=== PATIENT | female | born 1955 | race Caucasian/White ===

== ENCOUNTER → 2016-11-21 | Outpatient (CLI) | payer BC ==
[~2016-11-21] MED LIST: ASPCH81X PO; CPR500 PO; FLUT0.15 NAE; METR-163 PO; SIMV20TA2 PO; SNG10 PO
--- NOTE | 2016-11-21 09:47 | DIAGNOSTIC IMAGING REPORT ---
LEFT INGUINAL ULTRASOUND HISTORY: Left inguinal pain. FINDINGS: Real-time sonographic imaging of the left inguinal region was performed. There is no mass, fluid collections, or hernia identified. IMPRESSION: No left inguinal hernia identified. Electronically signed by: Rich Jacobo M.D. 11/21/2016 9:45 AM Dictated Date/Time: 11/21/2016 9:43 AM
== END | disposition home or self-care (01) ==
LOC: C.ULTR 09:14
PROVIDERS: ATTEND Family Medicine
DX: R10.9 Unspecified abdominal pain (principal)

== ENCOUNTER → 2016-11-27 | Outpatient (CLI) | payer BC ==
[~2016-11-27] MED LIST changes: +OPTIRAY 320 IV PRN
--- NOTE | 2016-11-27 14:57 | DIAGNOSTIC IMAGING REPORT ---
CT SCAN OF THE ABDOMEN AND PELVIS WITH IV CONTRAST CLINICAL HISTORY: Left lower quadrant abdominal pain. Change in bowel habits. COMPARISON STUDY: Abdominal CT dated 12/29 03/22 and 05/10/2011. TECHNIQUE: Following the IV administration of 94 cc of Optiray 320, CT scan of the abdomen and pelvis is performed from the lung bases to the proximal femora. Images are reviewed in the axial, sagittal, and coronal planes. IV contrast was administered without complication. Automated dose control exposure was utilized. CT DOSE: 275.91 mGy.cm FINDINGS: Lung bases: The heart is normal in size and without pericardial effusion. A 4 mm pleural-based nodule is seen in the left lower lobe on image #19. The lung bases are otherwise clear noting dependent atelectasis. There is an 11 mm nodule in the left breast seen on image #21. Liver: The contrast-enhanced liver is normal in size, contour, and attenuation. There is no intrahepatic biliary ductal dilatation. The hepatic veins and portal veins are patent. Gallbladder: Unremarkable. Spleen: Normal in size and attenuation. Pancreas: Unremarkable. Adrenal glands: Unremarkable. Kidneys: The contrast enhanced kidneys are normal in size and without hydronephrosis. The kidneys enhance symmetrically. Abdominal vasculature: The abdominal aorta is normal in course and caliber. Bowel: The small bowel and colon are normal in course and caliber. Visualized portions of the appendix appear normal. Peritoneum: There is no intraperitoneal free air or abdominal ascites. Lymphadenopathy: None. Pelvic viscera: The bladder is normal as visualized. An exophytic fibroid is again seen arising from the uterine fundus. No adnexal lesion is identified. Skeletal structures: The skeletal structures are osteopenic. There is mild lumbosacral spondylosis and scoliosis. Sclerotic change is seen at the sacroiliac joints. No lytic or blastic lesions are seen. IMPRESSION: 1. There are no acute infectious or inflammatory findings in the abdomen or pelvis. 2. Fibroid uterus. 3. There is an 11 mm nodule identified in the left breast. If not recently performed, follow-up with mammography is recommended for further assessment. 4. There is a low suspicion but indeterminant 4 mm pleural-based nodule at the left lung base. This can be followed if clinically warranted. See below. 5. Additional changes as above. Please refer to below summary of Fleischner criteria recommendations for follow-up of incidental CT nodules (Jayleen Lakhani, Guidelines for management of small pulmonary nodules detected on CT scans: A statement from the Fleischner Society, Radiology 237: [phone].) Low Risk Patient: Minimal or no smoking or other known risk factors for malignancy <=4 mm: No follow-up needed. >4-6 mm: Initial follow-up CT at 12 months; if unchanged, no further follow-up. >6-8 mm: Initial follow-up CT at 6-12 months then at 18-24 months if no change. >8 mm: Follow-up CT at \R\3, 9, 24 months, or PET and/or biopsy. High Risk Patient: History of smoking or other known risk factors <=4 mm: Follow-up at 12 months; if unchanged, no further follow-up. >4-6 mm: Initial follow-up CT at 6-12 months then at 18-24 months if no change. >6-8 mm: Initial follow-up CT at 3-6 months then at 9-12 and 24 months if no change. >8 mm: Same as low risk patient. Note: Nodule size measured as average of length and width. Ground glass or partly solid nodules may require longer follow-up to exclude indolent adenocarcinoma. Electronically signed by: Jd Candelario M.D. 11/27/2016 2:56 PM Dictated Date/Time: 11/27/2016 2:49 PM
== END | disposition home or self-care (01) ==
LOC: C.CTS 14:12
PROVIDERS: ATTEND Registered Nurse
DX: R19.4 Change in bowel habit (principal); N63 Unspecified lump in breast; R91.1 Solitary pulmonary nodule; D25.9 Leiomyoma of uterus, unspecified

== ENCOUNTER → 2016-12-09 | Day surgery (SDC) | payer BC ==
[2016-12-01 09:45] VITALS: BMI 22.0
[~2016-12-09] VITALS: Ht 160 cm; Wt 58.2 kg
[~2016-12-09] MED LIST changes: -CPR500 PO; +LIDOCAINE HCL 2% 2 ML VIAL (20MG/ML) ONE; -METR-163 PO; -OPTIRAY 320 IV PRN; +PROPOFOL IV EMULSION 10 MG/ML 20 ML VIAL IV ONE; +SODIUM CHLORIDE 0.9% 500ML 500 ML IV ONE
[2016-12-09 08:21] VITALS: Ht 160 cm; Wt 58.2 kg
--- NOTE | 2016-12-09 08:55 | Endo History and Physical ---
History & Physical Date of Service: Dec 09, 2016. Chief Complaint: LLQ pain, change in bowel habits Referring Physician: Dr. Freddy Eldridge History of Present Illness 61 yo CF who presents for colonoscopy secondary to LLQ abdominal pain. Past Surgical History Hx Cardiac Surgery: No Hx Internal Defibrillator: No Hx Pacemaker: No Hx Abdominal Surgery: Yes () Hx of Implantable Prosthesis: No Hx Post-Op Nausea and Vomiting: No Hx Cancer Surgery: No Hx Thoracic Surgery: No Hx Orthopedic: No Hx Urinary Tract Surgery: No Family History None Social History Smoking Status: Never Smoker Hx Substance Use: No Hx Alcohol Use: Yes (2 GLASSES OF WINE>5X WEEKLY) Allergies Coded Allergies: Codeine (Verified Adverse Reaction, Mild, NAUSEA, 12/09/16) Current Medications Reported Home Medications Medications Dose Route/Sig Max Daily Dose Days Date Category Flonase Allergy Relief (Fluticasone Propionate (Nasal)) 50 Mcg/Act Spr 1 [place] JOSE QAM 12/01/16 Reported Montelukast Sodium (Montelukast Sod) 10 Mg Tab 1 Tab PO QAM 12/01/16 Reported Zocor (Simvastatin) 20 Mg Tab 20 Mg PO QPM 12/01/16 Reported Aspirin Chewable (Aspirin) 81 Mg Chew 81 Mg PO QAM 12/01/16 Reported Vital Signs Weight (Kilograms): 58.18 Height (Feet): 5 Height (Inches): 3 Date Time Temp Pulse Resp B/P Pulse Ox O2 Delivery O2 Flow Rate FiO2 12/09/16 08:27 36 75 18 144/79 98 Room Air Physical Exam General Appearance: WD/WN, no apparent distress Respiratory/Chest: Auscultation: breath sounds normal Cardiovascular: Heart Auscultation: RRR Abdomen: Bowel Sounds: normal Inspection & Palpation: soft, non-distended, no tenderness, guarding & rebound Assessment and Plan Assessment: 61 yo CF who presents for colonoscopy secondary to LLQ abdominal pain. Plan: Proceed with colonoscopy.
--- NOTE | 2016-12-09 09:33 | GI REPORT ---
Procedure Date: 12/09/2016 9:10 AM Procedure: Colonoscopy Indications: Abdominal pain in the left lower quadrant Medicines: Monitored Anesthesia Care Complications: No immediate complications. Estimated Blood Loss: Estimated blood loss: none. Procedure: Pre-Anesthesia Assessment: - Prior to the procedure, a History and Physical was performed, and patient medications and allergies were reviewed. The patient's tolerance of previous anesthesia was also reviewed. The risks and benefits of the procedure and the sedation options and risks were discussed with the patient. All questions were answered, and informed consent was obtained. Prior Anticoagulants: The patient has taken aspirin, last dose was 2 days prior to procedure. ASA Grade Assessment: II - A patient with mild systemic disease. After reviewing the risks and benefits, the patient was deemed in satisfactory condition to undergo the procedure. After I obtained informed consent, the scope was passed under direct vision. Throughout the procedure, the patient's blood pressure, pulse, and oxygen saturations were monitored continuously. The scope was introduced through the anus and advanced to the terminal ileum. The colonoscopy was performed without difficulty. The patient tolerated the procedure well. The quality of the bowel preparation was good. The terminal ileum, ileocecal valve, appendiceal orifice, and rectum were photographed. Findings: Non-bleeding internal hemorrhoids were found during retroflexion. The hemorrhoids were small. The exam was otherwise without abnormality. Impression: - Non-bleeding internal hemorrhoids. - The examination was otherwise normal. - No specimens collected. Recommendation: - Resume previous diet. - Continue present medications. - Repeat colonoscopy in 10 years for surveillance. - Return to primary care physician as previously scheduled. All Salas, 12/09/2016 9:32:37 AM This report has been signed electronically. Note Initiated On: 12/09/2016 9:10 AM
--- NOTE | 2016-12-09 09:34 | Anesthesiology Progress Note ---
Anesthesia Post Op Note Date & Time Dec 09, 2016 at 09:34 Vital Signs Vital Signs Past 12 Hours Date Time Temp Pulse Resp B/P Pulse Ox O2 Delivery O2 Flow Rate FiO2 12/09/16 08:27 36 75 18 144/79 98 Room Air Notes Mental Status: alert / awake / arousable, participated in evaluation Pt Amnestic to Procedure: Yes Nausea / Vomiting: adequately controlled Pain: adequately controlled Airway Patency, RR, SpO2: stable & adequate BP & HR: stable & adequate Hydration State: stable & adequate Anesthetic Complications: no major complications apparent
--- NOTE | 2016-12-09 09:40 | Discharge Instructions ---
Endoscopy Patient Instructions Date / Procedure(s) Performed Dec 09, 2016. Colonoscopy Allergy Information Coded Allergies: Codeine (Verified Adverse Reaction, Mild, NAUSEA, 12/09/16) Discharge Date / Findings Dec 09, 2016. Internal hemorrhoids Medication Instructions OK to resume all medications today as prescribed Reported Home Medications Medications Dose Route/Sig Max Daily Dose Days Date Category Flonase Allergy Relief (Fluticasone Propionate (Nasal)) 50 Mcg/Act Spr 1 [place] JOSE QAM 12/01/16 Reported Montelukast Sodium (Montelukast Sod) 10 Mg Tab 1 Tab PO QAM 12/01/16 Reported Zocor (Simvastatin) 20 Mg Tab 20 Mg PO QPM 12/01/16 Reported Aspirin Chewable (Aspirin) 81 Mg Chew 81 Mg PO QAM 12/01/16 Reported Provider Instructions Activity Restrictions - No exercising or heavy lifting for 24 hours. - Do not drink alcohol the day of the procedure. - Do not drive a car or operate machinery until the day after the procedure. - Do not make any important decisions or sign important papers in 24 hours after the procedure. Following Day: - Return to full activity which may include returning to work/school. Diet Start your diet with liquids and light foods (jello, soup, juice, toast). Then eat your usual diet if not nauseated. Treatment For Common After Affects For mild abdominal pain, bloating, or excessive gas: - Rest - Eat lightly - Lie on right side Follow-Up Information Follow-up with Dr. Freddy Eldridge as scheduled Anesthesia Information What You Should Know You have had a procedure that required some medicine to reduce anxiety and discomfort. This treatment is called moderate sedation. After receiving the treatment, you may be sleepy, but you will be able to breathe on your own. The effects of the treatment may last for several hours. Follow these instructions along with Activity/Diet recommendations noted above: * Do NOT do anything where dizziness or clumsiness would be dangerous. * Rest quietly at home today, then you can be up and about tomorrow. * Have a responsible person stay with you the rest of today. * You may have had an I.V. today. If so, you may take the dressing off later today. Recommendations Call your doctor if: * Trouble breathing * Continuous vomiting for more than 24 hours * Temperature above 101 degrees * Severe abdominal pain or bloating * Pain not relieved by pain medicine ordered * There is increased drainage or redness from any incision * A large amount of rectal bleeding greater than 2-3 tablespoons. (If you had a polyp/s removed or have hemorrhoids, a small amount of blood - from the rectum is to be expected.) * You have any unanswered questions or concerns. IN THE EVENT OF A SERIOUS EMERGENCY, GO TO THE NEAREST EMERGENCY ROOM Your discharge instructions were prepared by provider All Salas. Patient Instructions Signature Page Anne Gupta Patient (or Guardian) Signature/Date: I have read and understand the instructions given to me by my caregivers. Caregiver/RN/Doctor Signature/Date: The above-named patient and/or guardian has received patient instructions on this date. + Original Patient Signature Page (only) stays with chart. Please make copy for patient.
[2016-12-09 10:05] VITALS: BP 131/63; PULSE 51; TEMP 36; O2SAT 100
== END | disposition home or self-care (01) ==
LOC: C.GI 08:02
PROVIDERS: ATTEND Internal Medicine
DX: R10.32 Left lower quadrant pain (principal); K57.30 Diverticulosis of large intestine without perforation or abscess without bleeding; Z98.890 Other specified postprocedural states; Z79.82 Long term (current) use of aspirin; Z88.5 Allergy status to narcotic agent

== ENCOUNTER → 2016-12-18 | Outpatient (CLI) | payer BC ==
[~2016-12-18] MED LIST changes: -LIDOCAINE HCL 2% 2 ML VIAL (20MG/ML) ONE; -PROPOFOL IV EMULSION 10 MG/ML 20 ML VIAL IV ONE; -SODIUM CHLORIDE 0.9% 500ML 500 ML IV ONE
--- NOTE | 2016-12-18 12:36 | MAMMOGRAPHY REPORT ---
UNILATERAL LEFT DIGITAL DIAGNOSTIC MAMMOGRAM TOMOSYNTHESIS WITH CAD AND TARGETED LEFT ULTRASOUND: 12/18/2016 CLINICAL HISTORY: The patient had a recent CT scan, in which an 11 mm mass was seen in the left [address]. The patient presents for workup of the mass. TECHNIQUE: Breast tomosynthesis in addition to standard 2D mammography was performed. Current study was also evaluated with a Computer Aided Detection (CAD) system. Left CC and MLO 2-D and tomosynth esis images were obtained. COMPARISON: Comparison is made to exams dated: 07/18/2016 mammogram, 07/17/2015 mammogram, 07/24/2014 ma mmogram, 07/20/2015 mammogram, 07/13/2014 mammogram, and 07/05/2013 mammogram - [facility]. BREAST COMPOSITION: The tissue of the left breast is heterogeneously dense, which may obscure small masses. FINDINGS: There is an oval 12 mm mass seen within the left lower inner quadrant, which is stable co mpared to multiple prior exams dating back to at least 2007 and is therefore considered benign. Thi s is located at the site of the mass seen on the recent CT scan in the left lower inner quadrant. S lightly lateral to this mass on the cc view is a smaller 8 mm circumscribed mass which is also been stable compared to prior exams including the July 2014 exam, and is benign given long-term stab ility. The remainder of the left breast is stable compared to prior exams, without suspicious charla s, calcifications, or areas of architectural distortion noted. Targeted ultrasound was performed of the left lower inner quadrant in the region of the mass seen on recent CT scan. In the left breast at 6:30 to 7:00, 2 cm from the nipple, there is an oval hypoech oic circumscribed mass which measures 10 x 5 x 9 mm. This corresponds with the mammographic mass wh ich has been stable for years. Additionally, this corresponds with the mass seen on the recent CT s can. Given the long-term stability, the mass is benign and likely represents a fibroadenoma. IMPRESSION: ACR BI-RADS CATEGORY 2: BENIGN, TARGETED ULTRASOUND ACR BI-RADS CATEGORY 2: BENIGN Hypoechoic 10 mm mass in the left breast at 6:30 to 7:00, which has been stable mammographically for years. This corresponds with the mass seen on the recent CT scan and is benign given the long-term stability and likely represents a fibroadenoma. There is no mammographic or targeted sonographic e vidence of malignancy. Return to annual mammogram screening schedule is recommended, due July 11. The patient has been verbally notified of the results. Approximately 10% of breast cancers are not detected with mammography. A negative mammographic repor t should not delay biopsy if a clinically suggestive mass is present. Ele Penaloza M.D. ah/:12/18/2016 09:32:59 Php Developer: Elva GARCIA(R)(M), [facility] letter sent: Normal 1/2 BI-RADS Code: ACR BI-RADS Category 2: Benign Ultrasound BI-RADS: ACR BI-RADS Category 2: Benign
== END | disposition home or self-care (01) ==
LOC: C.MAMM 08:54
PROVIDERS: ATTEND Family Medicine
DX: N63 Unspecified lump in breast (principal)

== ENCOUNTER → 2017-03-19 | Outpatient (CLI) | payer BC ==
[2017-03-19 12:19] LABS: CALCIUM 8.9 mg/dl (8.5-10.1)
[2017-03-19 12:22] LABS: ALT/SGPT 27 U/L (12-78); BLOOD UREA NITROGEN 19 mg/dl (7-18); BUN/CREATININE RATIO 27.8 (10-20); CARBON DIOXIDE 31 mmol/L (21-32); CHLORIDE 108 mmol/L (98-107); CHOLESTEROL 225 mg/dl (0-200); CREATININE 0.69 mg/dl (0.60-1.20); GLUCOSE 93 mg/dl (70-99); POTASSIUM 4.1 mmol/L (3.5-5.1); SODIUM 143 mmol/L (136-145); TRIGLYCERIDES 78 mg/dl (0-150); VERY LOW DENSITY LIPOPROT CALC 16 mg/dl
[2017-03-19 12:25] LABS: ALB/GLOB RATIO 1.3 (0.9-2); ALKALINE PHOSPHATASE 79 U/L (45-117); AST/SGOT 23 U/L (15-37); CHOLESTEROL/HDL RATIO 2.6; HDL CHOLESTEROL 87 mg/dl; LDL CHOLESTEROL CALCULATED 122 mg/dl
[2017-03-22 12:33] LABS: IGA SERUM 116 mg/dL (81-463); TIS TRANS IGA 1 U/mL (<4)
== END | disposition home or self-care (01) ==
LOC: C.LAB1850 10:03
PROVIDERS: ATTEND Family Medicine
DX: E78.5 Hyperlipidemia, unspecified (principal)